=== PATIENT | male | born 1965 | race Hispanic/Latino ===

== ENCOUNTER 2017-05-08 12:44 | Outpatient (CLI) | payer OTHER ==
--- NOTE | 2017-05-12 10:35 | PFT ---
PATIENT HISTORY: HEIGHT: 70 IN WEIGHT: 190 LBS SMOKER: NEVER HOW LONG: PACKS PER DAY: PRODUCTIVE COUGH: NO LUNG DISEASE: SOB PHYSICIAN INTERPRETATION FINAL REPORT: FEV1 is normal at 3.73 liters, FVC is normal. Mid flows are normal. Lung volumes are normal with the exception of a moderate reduction in functional residual capacity. There is no air trapping. Diffusion is normal. IMPRESSION: Overall, this study is normal. 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
== END 2017-05-08 12:45 | disposition home or self-care (01) ==
LOC: CP 12:44
PROVIDERS: ATTEND Internal Medicine
DX: R06.02 Shortness of breath (principal); G47.33 Obstructive sleep apnea (adult) (pediatric)
CPT/HCPCS: 94010; 94727; 94729

== ENCOUNTER 2017-05-08 13:39 | Outpatient (CLI) | payer OTHER ==
--- NOTE | 2017-05-08 15:05 | RAD ---
PA AND LATERAL CHEST: History: Dyspnea. FINDINGS: Comparison made with exam of 01-20-16. The heart size is normal. The lungs are well expanded without focal areas of consolidation, pneumoth orax, or pleural effusions. Minimal degenerative changes are seen in the spine. IMPRESSION: No radiographic evidence of acute cardiopulmonary process. POS: [facility]
== END 2017-05-08 13:40 | disposition home or self-care (01) ==
LOC: RAD 13:39
PROVIDERS: ATTEND Internal Medicine
DX: R06.00 Dyspnea, unspecified (principal)
CPT/HCPCS: 71020; 94010; 94727; 94729

== ENCOUNTER 2022-03-31 07:55 | Outpatient (CLI) | payer OTHER | END 2022-03-31 07:56 | disposition home or self-care (01) | LOC: BICULT 07:55 | PROVIDERS: ATTEND Physician Assistant Medical | DX: R10.13 Epigastric pain (principal); K21.9 Gastro-esophageal reflux disease without esophagitis; K59.00 Constipation, unspecified; K76.0 Fatty (change of) liver, not elsewhere classified | CPT/HCPCS: 76700 ==